=== PATIENT | female | born 1935 | race Caucasian/White ===

== ENCOUNTER 2016-08-19 10:25 | Inpatient (IN) | payer MEDICARE, OTHER ==
--- NOTE | ~2016-08-19 | HP ---
History And Physical [id number] [place]. [address] NAME: DERREK MENDOZA : 37 STATUS : ADM Denise PAT#: [id number] AGE: 81 ADM/REG DATE : 08/19/16 MR#: [id number] REPORT SERV DATE: 08/19/16 DICTATED BY: DIANDRA BAUER DATE: 08/19/16 REPORT STATUS : Draft TRANSCRIBED BY: MODBert DATE: 08/19/16 DATE OF ADMISSION: 08/19/2016 CARDIOLOGY ADMISSION HISTORY AND PHYSICAL IDENTIFYING DATA: The patient is an 81-year-old woman with known coronary heart disease, status post percutaneous coronary intervention to the mid left anterior descending in the year 2005. CHIEF COMPLAINT: Left-sided chest pain with radiation to the left flank and back of acute onset. HISTORY OF PRESENT ILLNESS: Ms. Mendoza is a pleasant 81-year-old woman, who is a patient of Dr. Olaf De Jesus. The patient has known coronary artery disease, status post previous PCI as noted above. The patient was last seen in Cardiology Clinic in 2015. At that time, the patient apparently was being evaluated for chest pain. She had a stress test performed 05/06/2016. This was a vasodilators stress test, which showed no evidence of myocardial ischemia with an estimated left ventricular ejection fraction greater than 60%. The patient was treated medically. She apparently does have a history of difficult-to- control hypertension. She apparently had done well since that time. Also of note, the patient had a CT scan performed also in 04/2016. This showed an infrarenal abdominal aortic aneurysm with a maximal diameter of 5.3 cm. The patient reports, she is followed by Dr. Osmel Jones for this condition. The patient was evaluated by Dr. Jones. The decision was apparently made not to operate at that time. In addition to her chest pain, the patient has been complaining of some shortness of breath/dyspnea on exertion. This is a chronic condition and the patient reports no recent worsening. She denies orthopnea or lower extremity edema. Also in addition to her to complain of chest pain and back pain, the patient is complaining of abdominal pain. This has been present for several weeks, but apparently has been worsening over the last week. The patient describes unintentional weight loss over the last several months. She also reports abdominal pain with meals, with a character that may suggest mesenteric ischemia. PAST MEDICAL HISTORY: 1. Coronary artery disease, status post PCI. 2. Hypertension. 3. Dyslipidemia. 4. Paroxysmal atrial fibrillation. 5. Abdominal aortic aneurysm. PAST SURGICAL HISTORY: 1. The patient has undergone percutaneous coronary intervention. 2. Hysterectomy. 3. Tonsillectomy and adenoidectomy. 4. Left ankle fracture repair. 5. The patient had some type of procedure in the year 1996 involving her thoracic aorta. History And Physical [address] 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 FAMILY HISTORY: The patient's father apparently at age 34 from stroke and complications of alcoholism. Her mother at age 79 of ruptured abdominal aortic aneurysm. SOCIAL HISTORY: The patient has no present history of tobacco, alcohol, or drug use. ALLERGIES: THE PATIENT HAS DOCUMENTED ALLERGIES TO PENICILLINS, SULFA DRUGS, SOTALOL, VENLAFAXINE, ALPRAZOLAM, AND MIRALAX. HOME MEDICATIONS: 1. Vitamin D3 1000 units p.o. daily. 2. Clonazepam 1 mg p.o. twice daily. 3. Clonidine 0.1 mg p.o. daily. 4. Pristiq 50 mg p.o. daily. 5. Flonase nasal spray one spray to each nostril twice daily. 6. Gabapentin 300 mg p.o. twice daily. 7. Claritin 10 mg p.o. daily. 8. Losartan 100 mg p.o. daily. 9. Meclizine 25 mg p.o. daily. 10.Metoprolol tartrate 25 mg p.o. twice daily. 11.Niacin 500 mg p.o. daily. 12.Fish oil 1000 mg p.o. daily. 13.Oxycodone/acetaminophen 10/325 mg one tablet twice daily as needed. 14.Pantoprazole 40 mg p.o. twice daily. 15.Mirapex 0.5 mg p.o. daily. 16.Pravastatin 40 mg p.o. daily. 17.Propafenone 300 mg p.o. twice daily. 18.Coumadin 2 mg p.o. at bedtime. REVIEW OF SYSTEMS: A complete 12-system review was performed. This is noncontributory except for the pertinent positives and negatives noted in the history of present illness above. PHYSICAL EXAMINATION: VITAL SIGNS: Temperature is 98.7 degrees Fahrenheit, blood pressure on an initial evaluation is apparently 138/67 mmHg. The patient received nitroglycerin in the emergency room and her blood pressure subsequently decreased to approximately 84/59 mmHg, heart rate is 51 beats per minute and regular, respirations 19, oxygen saturation is 98% on a 2 L nasal cannula. CONSTITUTIONAL: The patient is an obese elderly white woman, in no acute distress. EYES: PERRL, EOMI, clear conjunctiva. HEAD/MNT: NCAT with moist mucous membranes and grossly normal hard and soft palate. NECK: Supple with no obvious thyromegaly or lymphadenopathy CARDIOVASCULAR: There is a regular rhythm with a normal S1 and a physiologically split History And Physical [address] [address] NAME: DERREK MENDOZA : 37 STATUS : ADM Denise PAT#: [id number] AGE: 81 ADM/REG DATE : 08/19/16 MR#: [id number] REPORT SERV DATE: 08/19/16 DICTATED BY: DIANDRA BAUER DATE: 08/19/16 REPORT STATUS : Draft TRANSCRIBED BY: ARIANNA DATE: 08/19/16 second heart sound. The jugular venous pressure appears grossly normal. No murmurs are appreciated. PULMONARY: Clear to auscultation bilaterally with no wheezing, rales, rhonchi, or dullness to percussion. ABDOMINAL: The abdomen is soft and obese. There is a fairly large at least 5 cm pulsatile mass noted in the mid abdomen near the periumbilical region. This is at least mildly to moderately tender to palpation on my exam. There is no rebound or guarding noted. Bowel sounds are normoactive at this time. There is no gross hepatosplenomegaly noted. EXTREMITIES: There is trace ankle edema with no clubbing or cyanosis noted. MUSCULOSKELETAL: Grossly normal strength and range of motion in all extremities INTEGUMENTARY: Skin appears intact with no bruises, wounds or active lesions noted NEURO/PSYC: Alert and oriented x3, with no dysarthria, facial droop or lateralizing weakness noted. IMAGIN-lead EKG: The 12-lead EKG shows sinus bradycardia with left axis deviation and an RSR prime pattern with nonspecific ST/T-wave changes. Chest x-ray, the chest x-ray shows elevation of right hemidiaphragm, with otherwise stable chest with no acute cardiopulmonary process and no evidence of pulmonary edema. LABORATORY DATA: White blood cell count is 5.0, hemoglobin 12.5, hematocrit 37, platelets 187. Electrolytes show a sodium of 140, potassium 3.9, chloride is 105, CO2 30, BUN 21, creatinine is 1.11, glucose 115. Troponin I is less than 0.02. Magnesium is 2.0, calcium is 9.1, a B-type natriuretic peptide is normal at 87. The INR is 2.2 and a PTT is 34. ASSESSMENT AND PLAN: 1. Chest pain and abdominal pain. At this time, it is unclear whether the patient's chest pain represents a possible acute coronary syndrome or whether it could be referred from the patient's abdominal aortic aneurysm. I am concerned regarding an abdominal mass which is possible in at least mildly tender to palpation on my exam. A CT angiogram of the abdomen and pelvis with runoff will be ordered, and performed as soon as possible. We will consult Dr. Osmel Jones to evaluate the patient for her history of aortic aneurysm. The patient's Coumadin will be held for now. Should the patient's abdominal aortic aneurysm be stable, we will consider further workup either with myocardial perfusion imaging or possibly coronary angiography. The patient will continue her other home medications. The patient is relatively hypotensive and therefore we will temporarily hold clonidine and metoprolol. Metoprolol will be restarted as soon as possible to reduce aortic shear stress. Again, if no immediate vascular procedure is required, we will consider starting aspirin 81 mg p.o. daily. 2. Possible mesenteric ischemia: The patient describes unintentional weight loss and pain after eating. This may imply a mesenteric ischemia. We will evaluate for any evidence of mesenteric artery occlusion on the patient's CT scan of the abdomen. We will discuss with Dr. Jones. 3. Hypertension: The patient is currently relatively hypotensive. Her blood pressure has improved somewhat after a normal saline bolus, the patient is presently without obvious symptoms of shock. History And Physical [address] [place]. [address] NAME: DERREK MENDOZA : 37 STATUS : ADM Denise PAT#: [id number] AGE: 81 ADM/REG DATE : 08/19/16 MR#: [id number] REPORT SERV DATE: 08/19/16 DICTATED BY: DIANDRA BAUER DATE: 08/19/16 REPORT STATUS : Draft TRANSCRIBED BY: ARIANNA DATE: 08/19/16 We will follow up with the results of the patient's CT scan and proceed accordingly. The patient will remain n.p.o. except medications for now. [facility] Diandra Bauer MD / [id number] CC: Casie De Jesus M.D.
[2016-08-19 10:04] LABS: BASOPHILS 0.4 %; BASOPHILS ABSOLUTE 0.02 10/3/uL (0.0-0.16); EOSINOPHILS ABSOLUTE 0.15 10/3/uL (0.0-0.53); ER CBC TAT 0 Hrs 03 Mins; HEMATOCRIT 37.3 % (36.0-48.0); HEMOGLOBIN 12.5 g/dL (12.0-16.0); IMMATURE GRANULOCYTES 0.2 %; IMMATURE GRANULOCYTES ABSOLUTE 0.01 10/3/uL (0.0-0.11); LYMPHOCYTES 27.4 %; LYMPHOCYTES ABSOLUTE 1.36 10/3/uL (0.67-4.30); MEAN CORPUSCULAR HEMOGLOB 31.1 pg (26.0-34.0); MEAN CORPUSCULAR VOLUME 92.8 fL (80-100); MEAN PLATELET VOLUME 10.2 fL (9.2-13.0); MONOCYTES 5.4 %; MONOCYTES ABSOLUTE 0.27 10/3/uL (0.21-1.20); NEUTROPHILS 63.6 %; NEUTROPHILS ABSOLUTE 3.16 10/3/uL (2.02-8.40); PLATELET COUNT 187 10/3/uL (150-400); RBC DISTRIBUTION WIDTH 14.3 % (12.0-16.0); RED CELL COUNT 4.02 10/6/uL (4.0-5.6)
[2016-08-19 10:05] LABS: MANUAL DIFF NO %; MEAN CORPUS HGB CONC 33.5 g/dL (32.0-36.0)
[2016-08-19 10:11] LABS: INTERNATIONAL NORMAL RATI 2.2 UNITS (-); PARTIAL THROMBO TIME 33.7 SEC (22.5-37.2); PROTIME (NOT ORD) 24.4 SEC (12.0-14.5)
[2016-08-19 10:22] LABS: BUN (BLOOD UREA NITROGEN) 21 MG/DL (6-23); CALCIUM, SERUM 9.1 MG/DL (8.5-10.4); CHEST PAIN PROFILE TAT 0 Hrs 21 Mins; CHLORIDE, SERUM 105 MMOL/L (96-112); CO2 (CARBON DIOXIDE) 30 MMOL/L (24-34); CREATININE 1.11 MG/DL (0.55-1.02); GFR AFRICAN AMERICAN 54 ML/MIN (>=60); GFR NON AFRICAN AMERICAN 47 ML/MIN (>=60); GLUCOSE, SERUM 115 MG/DL (60-99); POTASSIUM, SERUM 3.9 MMOL/L (3.5-5.3); SODIUM, SERUM 140 MMOL/L (135-148); TROPONIN I <0.02 NG/ML (<0.05)
[~2016-08-19 10:25] MED LIST: ASA5GR PO; ASABAYER PO; B12100T PO; C2 PO; C25 PO; CAT1 PO; CLARIT10 PO; COUMADIN3 MG PO; COZ50 PO; COZAAR100 MG PO; DIOV80 PO; DRONED400 PO; FISH-EPA1000 MG PO; FLEX PO; FLONASE NAS; FLONASE NASAL S16 GM NAS; Fish Oil PO; I20 PO; INDE120LA PO; JANTOVEN1 MG PO; JANTOVEN2 MG PO; JANTOVEN3 MG PO; KDUR20 PO; KLONO1 PO; KLONO5 PO; L20 PO; L40 PO; LEXAPRO20 PO; LISINOPRIL40 MG PO; LOP25 PO; LORT7 PO; LOVENOX1C SC; MCZ25 PO; METOPROLOL 25MG PO; MIRALAXPKT PO; MIRAPEX5 PO; NEUR300 PO; NEXIUM40 PO; NIACIN 500 PO; NITROSTAT0.4 MG SL; NORV5 PO; PERCOCET 10/3251 TAB PO; PERCOCET1 TA4 PO; PRAVAC PO; PRAVACHOL40 MG PO; PRILO PO; PRISTIQ50 MG PO; PROTONIX PO; RESTASIS OPH; RYTHMOL150 MG PO; RYTHMOL300 MG PO; SLO-NIACIN500 MG PO; VITAMIN D31000 UNIT PO; ZERTEC PO
[2016-08-20 00:16] LABS: PARTIAL THROMBO TIME 75.5 SEC (22.5-37.2)
[2016-08-20 02:26] LABS: BASOPHILS 0.2 %; BASOPHILS ABSOLUTE 0.01 10/3/uL (0.0-0.16); EOSINOPHILS 2.7 %; EOSINOPHILS ABSOLUTE 0.14 10/3/uL (0.0-0.53); HEMATOCRIT 37.5 % (36.0-48.0); HEMOGLOBIN 12.7 g/dL (12.0-16.0); LYMPHOCYTES 31.9 %; LYMPHOCYTES ABSOLUTE 1.65 10/3/uL (0.67-4.30); MEAN CORPUS HGB CONC 33.9 g/dL (32.0-36.0); MEAN CORPUSCULAR HEMOGLOB 31.3 pg (26.0-34.0); MEAN CORPUSCULAR VOLUME 92.4 fL (80-100); MEAN PLATELET VOLUME 10.1 fL (9.2-13.0); MONOCYTES 7.5 %; MONOCYTES ABSOLUTE 0.39 10/3/uL (0.21-1.20); NEUTROPHILS 57.7 %; NEUTROPHILS ABSOLUTE 2.99 10/3/uL (2.02-8.40); PLATELET COUNT 181 10/3/uL (150-400); RBC DISTRIBUTION WIDTH 14.2 % (12.0-16.0); RED CELL COUNT 4.06 10/6/uL (4.0-5.6); WHITE BLOOD CELLS 5.2 10/3/uL (4.5-10.5)
[2016-08-20 02:28] LABS: MANUAL DIFF NO %
[2016-08-20 02:48] LABS: CALCIUM, SERUM 8.8 MG/DL (8.5-10.4); CHLORIDE, SERUM 105 MMOL/L (96-112); CHOL/HDL RATIO(NOT ORDER) 2.4 (0-5); CHOLESTEROL 121 MG/DL (< 200); CO2 (CARBON DIOXIDE) 29 MMOL/L (24-34); CREATININE 0.88 MG/DL (0.55-1.02); GFR AFRICAN AMERICAN 72 ML/MIN (>=60); GFR NON AFRICAN AMERICAN 62 ML/MIN (>=60); GLUCOSE, SERUM 97 MG/DL (60-99); HDL CHOLESTEROL 50 MG/DL (> 49); LDL CHOLESTEROL 49 MG/DL (< 130); NON-HDL CHOLESTEROL 71 MG/DL (< 160); POTASSIUM, SERUM 3.8 MMOL/L (3.5-5.3); SGPT(ALT) 16 U/L (5-65); SODIUM, SERUM 144 MMOL/L (135-148); TRIGLYCERIDE 113 MG/DL (< 150)
[2016-08-20 02:51] LABS: BUN (BLOOD UREA NITROGEN) 16 MG/DL (6-23)
[2016-08-20 03:34] LABS: TROPONIN I <0.02 NG/ML (<0.05)
[2016-08-20 03:52] LABS: INTERNATIONAL NORMAL RATI 2.3 UNITS (-); PROTIME (NOT ORD) 25.1 SEC (12.0-14.5)
[2016-08-21 05:36] LABS: BASOPHILS 0.4 %; BASOPHILS ABSOLUTE 0.02 10/3/uL (0.0-0.16); EOSINOPHILS 4.2 %; HEMOGLOBIN 13.3 g/dL (12.0-16.0); IMMATURE GRANULOCYTES 0.2 %; IMMATURE GRANULOCYTES ABSOLUTE 0.01 10/3/uL (0.0-0.11); LYMPHOCYTES 37.6 %; LYMPHOCYTES ABSOLUTE 1.78 10/3/uL (0.67-4.30); MEAN CORPUS HGB CONC 33.3 g/dL (32.0-36.0); MEAN CORPUSCULAR HEMOGLOB 31.1 pg (26.0-34.0); MEAN CORPUSCULAR VOLUME 93.7 fL (80-100); MEAN PLATELET VOLUME 10.5 fL (9.2-13.0); MONOCYTES 8.5 %; NEUTROPHILS 49.1 %; NEUTROPHILS ABSOLUTE 2.32 10/3/uL (2.02-8.40); PLATELET COUNT 174 10/3/uL (150-400); RBC DISTRIBUTION WIDTH 14.4 % (12.0-16.0); RED CELL COUNT 4.27 10/6/uL (4.0-5.6); WHITE BLOOD CELLS 4.7 10/3/uL (4.5-10.5)
[2016-08-21 05:37] LABS: MANUAL DIFF NO %
[2016-08-21 05:41] LABS: BUN (BLOOD UREA NITROGEN) 16 MG/DL (6-23); CALCIUM, SERUM 9.4 MG/DL (8.5-10.4); CHLORIDE, SERUM 104 MMOL/L (96-112); CHOL/HDL RATIO(NOT ORDER) 2.2 (0-5); CHOLESTEROL 116 MG/DL (< 200); CO2 (CARBON DIOXIDE) 25 MMOL/L (24-34); CREATININE 0.89 MG/DL (0.55-1.02); GFR AFRICAN AMERICAN 71 ML/MIN (>=60); GFR NON AFRICAN AMERICAN 61 ML/MIN (>=60); GLUCOSE, SERUM 91 MG/DL (60-99); HDL CHOLESTEROL 53 MG/DL (> 49); LDL CHOLESTEROL 38 MG/DL (< 130); NON-HDL CHOLESTEROL 63 MG/DL (< 160); PARTIAL THROMBO TIME 88.4 SEC (22.5-37.2); POTASSIUM, SERUM 3.8 MMOL/L (3.5-5.3); PROTIME (NOT ORD) 30.5 SEC (12.0-14.5); SODIUM, SERUM 141 MMOL/L (135-148); TRIGLYCERIDE 128 MG/DL (< 150)
[2016-08-21 15:48] LABS: PARTIAL THROMBO TIME 30.5 SEC (22.5-37.2)
[2016-08-21 16:06] LABS: INTERNATIONAL NORMAL RATI 1.4 UNITS (-); PROTIME (NOT ORD) 17.2 SEC (12.0-14.5)
[2016-08-22 08:10] LABS: BASOPHILS 0.3 %; BASOPHILS ABSOLUTE 0.01 10/3/uL (0.0-0.16); EOSINOPHILS 7.8 %; EOSINOPHILS ABSOLUTE 0.28 10/3/uL (0.0-0.53); HEMATOCRIT 39.8 % (36.0-48.0); HEMOGLOBIN 13.1 g/dL (12.0-16.0); IMMATURE GRANULOCYTES 0.3 %; IMMATURE GRANULOCYTES ABSOLUTE 0.01 10/3/uL (0.0-0.11); LYMPHOCYTES 39.8 %; LYMPHOCYTES ABSOLUTE 1.42 10/3/uL (0.67-4.30); MANUAL DIFF NO %; MEAN CORPUS HGB CONC 32.9 g/dL (32.0-36.0); MEAN CORPUSCULAR VOLUME 94.3 fL (80-100); MEAN PLATELET VOLUME 9.8 fL (9.2-13.0); MONOCYTES 8.1 %; MONOCYTES ABSOLUTE 0.29 10/3/uL (0.21-1.20); NEUTROPHILS 43.7 %; NEUTROPHILS ABSOLUTE 1.56 10/3/uL (2.02-8.40); PLATELET COUNT 165 10/3/uL (150-400); RBC DISTRIBUTION WIDTH 14.8 % (12.0-16.0); RED CELL COUNT 4.22 10/6/uL (4.0-5.6); WHITE BLOOD CELLS 3.6 10/3/uL (4.5-10.5)
[2016-08-22 08:17] LABS: INTERNATIONAL NORMAL RATI 1.2 UNITS (-)
[2016-08-22 08:26] LABS: BUN (BLOOD UREA NITROGEN) 14 MG/DL (6-23); CALCIUM, SERUM 8.8 MG/DL (8.5-10.4); CHLORIDE, SERUM 106 MMOL/L (96-112); CREATININE 0.81 MG/DL (0.55-1.02); GFR AFRICAN AMERICAN 80 ML/MIN (>=60); GFR NON AFRICAN AMERICAN 69 ML/MIN (>=60); GLUCOSE, SERUM 88 MG/DL (60-99); POTASSIUM, SERUM 3.8 MMOL/L (3.5-5.3); SODIUM, SERUM 141 MMOL/L (135-148)
[2016-08-22 08:27] LABS: CO2 (CARBON DIOXIDE) 30 MMOL/L (24-34)
== END 2016-08-22 10:16 | disposition home or self-care (01) | DRG 287 ==
LOC: ER 10:25 → CDU1 11:43 → CDU2 12:05
PROVIDERS: Emergency Medicine; Internal Medicine Cardiovascular Disease
PROC: 4A023N7 Measurement of Cardiac Sampling and Pressure, Left Heart, Percutaneous Approach (ICD-10-PCS; principal; 2016-08-21)
PROC: B2111ZZ Fluoroscopy of Multiple Coronary Arteries using Low Osmolar Contrast (ICD-10-PCS; 2016-08-21)
PROC: B2151ZZ Fluoroscopy of Left Heart using Low Osmolar Contrast (ICD-10-PCS; 2016-08-21)
PROC: 30233K1 Transfusion of Nonautologous Frozen Plasma into Peripheral Vein, Percutaneous Approach (ICD-10-PCS; 2016-08-21)
DX: I25.110 Atherosclerotic heart disease of native coronary artery with unstable angina pectoris (principal); I48.0 Paroxysmal atrial fibrillation; I10 Essential (primary) hypertension; E78.00 Pure hypercholesterolemia, unspecified; I71.4 Abdominal aortic aneurysm, without rupture; E78.5 Hyperlipidemia, unspecified; R51 Headache; Z88.0 Allergy status to penicillin; Z88.2 Allergy status to sulfonamides; Z88.8 Allergy status to other drugs, medicaments and biological substances; Z87.891 Personal history of nicotine dependence
CPT/HCPCS: 36415; 71010; 73706-50; 74174; 78452; 80048; 80061; 83735; 83880; 84460; 84484; 85025; 85610; 85730; 86900; 86901; 87040; 93005; 93017; 93458; 99152; 99291; A9270-GY; A9502; C1769; C1887; C1894; J0153; J0360; J2250; J3010; J3430; P9059; Q9967